=== PATIENT | male | born 1980 | race Two or more races ===

== ENCOUNTER 2020-03-21 16:25 | Emergency (ER) | payer MEDICAID ==
[~2020-03-21] VITALS: Ht 177.8 cm; Wt 72.6 kg
[2020-03-21 16:45] VITALS: BP 133/85
--- NOTE | 2020-03-21 17:25 | Emergency Room Report ---
History of Present Illness General Chief Complaint: Flu Like Symptoms Source: Patient Present Illness HPI This patient presents during the COVID-19 pandemic. The patient states he first had Covid symptoms approximately around March 06. He states that March 11 he tested positive for Covid. He states his symptoms have been sore throat, fatigue, body aches. He states over the past few days he is noticed some shortness of breath and has had several episodes of vomiting today. Denies fever or chills. He denies cough or congestion. He states he is worried that he was getting worsening Covid. He states that he retested for Covid on March 18 and was negative. He has no other complaints. 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 COVID-19 Screening: Negative COVID-19 COVID-19 Testing Source: 03/18/20 Patient History Past Medical History: none Social History: Denies: smoking, alcohol use, drug use Reviewed Nursing Documentation: PMH: Agreed; PSxH: Agreed Nursing Documentation-PMH Past Medical History: No History, Except For Review of Systems All Other Systems: negative except mentioned in HPI Physical Exam Vital Signs Date Time Temp Pulse Resp B/P (MAP) Pulse Ox O2 Delivery O2 Flow Rate FiO2 03/21/20 16:33 98.4 84 16 128/81 (97) 96 Room Air Sp02 EP Interpretation: reviewed, normal General Appearance: no apparent distress, alert, GCS 15, non-toxic Head: normocephalic, atraumatic Eyes: bilateral eye normal inspection, bilateral eye PERRL ENT: hearing grossly normal, normal pharynx, no angioedema, normal voice Neck: normal inspection, full range of motion Respiratory: no respiratory distress, no retraction, no accessory muscle use, speaking full sentences Cardiovascular #1: regular rate, rhythm, no edema Gastrointestinal: normal inspection, non-distended Rectal: deferred Musculoskeletal: back normal, normal range of motion, gait/station normal, non- tender Neurologic: alert, motor strength/tone normal, oriented x3, sensory intact, responsive, speech normal Psychiatric: judgement/insight normal, memory normal, mood/affect normal, no suicidal/homicidal ideation Skin: no rash, normal color Medical Decision Making Diagnostic Impression: Primary Impression: Viral syndrome ER Course This patient has a clinical presentation consistent with viral syndrome. Symptoms are nonspecific. There are no red flags on physical exam that would make me concerned for serious illness. This includes no evidence of meningitis, intra-abdominal process that would make me concerned for appendicitis or diverticulitis or other surgical or emergency etiology. Overall, this patient's presentation is benign and the patient is nontoxic. Laboratory workup is negative. There is no evidence of an emergency medical condition. The patient is given close return precautions and followup instructions. This patient was evaluated in the context of the global COVID-19 pandemic, which necessitated consideration that the patient might be at risk for infection with the [id number] virus that causes COVID-19. Institutional protocols and algorithms that pertain to the evaluation of patients at risk for COVID-19 and the state of rapid change based on information released by multiple regulatory bodies including the CDC and federal and state organizations. These policies and algorithms were followed during the patient's care in the ED. Laboratory Tests Test 03/21/20 16:55 White Blood Count 7.5 K/UL (4.8-10.8) Red Blood Count 5.33 M/UL (4.70-6.10) Hemoglobin 16.6 G/DL (14.2-18.0) Hematocrit 50.9 % (42.0-52.0) Mean Corpuscular Volume 95 FL (80-99) Mean Corpuscular Hemoglobin 31.2 PG (27.0-31.0) H Mean Corpuscular Hemoglobin Concent 32.7 G/DL (32.0-36.0) Red Cell Distribution Width 11.5 % (11.6-14.8) L Platelet Count 321 K/UL (150-450) Mean Platelet Volume 7.3 FL (6.5-10.1) Neutrophils (%) (Auto) 57.3 % (45.0-75.0) Lymphocytes (%) (Auto) 28.5 % (20.0-45.0) Monocytes (%) (Auto) 12.1 % (1.0-10.0) H Eosinophils (%) (Auto) 1.0 % (0.0-3.0) Basophils (%) (Auto) 1.2 % (0.0-2.0) Prothrombin Time 11.6 SEC (9.30-11.50) H Prothrombin Time INR 1.1 (0.9-1.1) Activated Partial Thromboplast Time 25 SEC (23-33) D-Dimer 0.19 mg/L FEU (0.00-0.49) Urine Color Pale yellow Urine Appearance Clear Urine pH 6.5 (4.5-8.0) Urine Specific [place] 1.015 (1.005-1.035) Urine Protein Negative (NEGATIVE) Urine Glucose (UA) Negative (NEGATIVE) Urine Ketones Negative (NEGATIVE) Urine Blood 1+ (NEGATIVE) H Urine Nitrite Negative (NEGATIVE) Urine Bilirubin Negative (NEGATIVE) Urine Urobilinogen Normal MG/DL (0.0-1.0) Urine Leukocyte Esterase Negative (NEGATIVE) Urine RBC 0-2 /HPF (0 - 0) H Urine WBC 0-2 /HPF (0 - 0) Urine Squamous Epithelial Cells None /LPF (NONE/OCC) Urine Bacteria None /HPF (NONE) Sodium Level 140 MMOL/L (136-145) Potassium Level 4.4 MMOL/L (3.5-5.1) Chloride Level 103 MMOL/L (98-107) Carbon Dioxide Level 30 MMOL/L (21-32) Anion Gap 7 mmol/L (5-15) Blood Urea Nitrogen 15 mg/dL (7-18) Creatinine 0.8 MG/DL (0.55-1.30) Estimated Glomerular Filtration Rate > 60 mL/min (>60) Glucose Level 100 MG/DL (74-106) Lactic Acid Level 1.60 mmol/L (0.4-2.0) Calcium Level 9.8 MG/DL (8.5-10.1) Ferritin 531 NG/ML (8-388) H Total Bilirubin 0.4 MG/DL (0.2-1.0) Aspartate Amino Transferase (AST) 20 U/L (15-37) Alanine Aminotransferase (ALT) 36 U/L (12-78) Alkaline Phosphatase 92 U/L (46-116) Lactate Dehydrogenase 176 U/L (81-234) Total Creatine Kinase 50 U/L (26-308) Creatine Kinase MB 0.7 NG/ML (0.0-3.6) Creatine Kinase MB Relative Index 1.4 Troponin I 0.000 ng/mL (0.000-0.056) C-Reactive Protein, Quantitative Pending Pro-B-Type Natriuretic Peptide 25 pg/mL (0-125) Total Protein 8.5 G/DL (6.4-8.2) H Albumin 4.2 G/DL (3.4-5.0) Globulin 4.3 g/dL Albumin/Globulin Ratio 1.0 (1.0-2.7) Lipase 253 U/L (73-393) Microbiology Date/Time Source Procedure Growth Status 03/21/20 16:55 Nasopharynx SARS-CoV-2 RdRp Gene Assay - Final Complete EKG Diagnostic Results Rate: normal Rhythm: NSR ST Segments: no acute changes Rhythm Strip Diag. Results EP Interpretation: yes Rate: 70's Rhythm: NSR, no PVC's, no ectopy Chest X-Ray Diagnostic Results Chest X-Ray Diagnostic Results : Chest X-Ray Ordered: Yes # of Views/Limited/Complete: 1 View Indication: Shortness of Breath EP Interpretation: Yes Interpretation: no consolidation, no effusion, no pneumothorax, no acute cardiopulmonary disease Impression: No acute disease Electronically Signed by: Urmila Feldman DO Last Vital Signs Date Time Temp Pulse Resp B/P (MAP) Pulse Ox O2 Delivery O2 Flow Rate FiO2 03/21/20 16:33 98.4 84 16 128/81 (97) 96 Room Air Status: improved Disposition: HOME, SELF-CARE Condition: Improved Urmila Feldman DO Mar 21, 2020 17:25
[2020-03-21 17:26] LABS: BILIRUBIN, URINE NEGATIVE (NEGATIVE); COLOR,URINE PALE YELLOW; GLUCOSE, URINE (UA) NEGATIVE (NEGATIVE); KETONES,URINE NEGATIVE (NEGATIVE); LEUKOCYTE ESTERASE ,URINE NEGATIVE (NEGATIVE); NITRITE,URINE NEGATIVE (NEGATIVE); PH,URINE 6.5 (4.5-8.0); PROTEIN,URINE NEGATIVE (NEGATIVE); UROBILINOGEN,URINE NORMAL MG/DL (0.0-1.0)
[2020-03-21 17:27] LABS: BASOPHILS % (AUTO) 1.2 % (0.0-2.0); HEMATOCRIT 50.9 % (42.0-52.0); HEMOGLOBIN 16.6 G/DL (14.2-18.0); LYMPHOCYTES % (AUTO) 28.5 % (20.0-45.0); MEAN CORPUSCULAR VOLUME 95 FL (80-99); MONOCYTES % (AUTO) 12.1 % (1.0-10.0); NEUTROPHILS % (AUTO) 57.3 % (45.0-75.0); PLATELET COUNT 321 K/UL (150-450); RED BLOOD COUNT 5.33 M/UL (4.70-6.10); RED CELL DISTRIBUTION WIDTH 11.5 % (11.6-14.8); WHITE BLOOD COUNT 7.5 K/UL (4.8-10.8)
[2020-03-21 17:38] LABS: APPEARANCE,URINE CLEAR
[2020-03-21 17:43] LABS: ANION GAP 7 mmol/L (5-15); BLOOD UREA NITROGEN 15 mg/dL (7-18); CALCIUM 9.8 MG/DL (8.5-10.1); CARBON DIOXIDE 30 MMOL/L (21-32); CHLORIDE 103 MMOL/L (98-107); CREATININE 0.8 MG/DL (0.55-1.30); POTASSIUM 4.4 MMOL/L (3.5-5.1); SODIUM 140 MMOL/L (136-145)
[2020-03-21 17:48] LABS: INR 1.1 (0.9-1.1)
[2020-03-21 17:58] LABS: ALANINE AMINOTRANSFERASE 36 U/L (12-78); ALBUMIN 4.2 G/DL (3.4-5.0); ALKALINE PHOSPHATASE 92 U/L (46-116); ASPARTATE AMINO TRANSFERASE 20 U/L (15-37); BILIRUBIN,TOTAL 0.4 MG/DL (0.2-1.0); CKMB 0.7 NG/ML (0.0-3.6); CREATINE KINASE 50 U/L (26-308); FERRITIN 531 NG/ML (8-388); LACTATE DEHYDROGENASE 176 U/L (81-234)
[2020-03-21 18:45] VITALS: BP 139/81
[2020-03-21 19:28] VITALS: BP 124/80
[2020-03-21] MEDS ORDERED: ZOFRAN ODT8 MG ORAL (19:34)
[2020-03-21 19:57] VITALS: BP 135/85
--- NOTE | 2020-03-22 11:12 | Diagnostic Imaging Report ---
Indication: Shortness of breath Technique: XRAY Chest 1v Comparison: None Findings: Heart size and mediastinal contours are within normal limits for AP technique. There is no focal airspace consolidation, pneumothorax or pleural effusion. Osseous structures demonstrate no acute abnormality. Impression: No radiographic evidence of acute cardiopulmonary disease.
--- NOTE | 2020-03-22 12:55 | Cardiology Report ---
APPROVED REPORT EKG Measurement Heart [id number] <Conclusion> Normal sinus rhythm Nonspecific T wave abnormality Abnormal ECG
== END 2020-03-21 19:58 | disposition home or self-care (01) ==
LOC: EMR 16:45
DX: B34.9 Viral infection, unspecified (principal); Z86.16 Personal history of COVID-19
CPT/HCPCS: 36415; 71045; 80053; 81003; 82550; 82553; 82728; 83605; 83615; 83690; 83880; 84484; 85025; 85379; 85610; 85730; 87040; 93005; 96374; J2405; U0002; Z7502; 86140; 99284